=== PATIENT | male | born 1990 | race Caucasian/White ===

== ENCOUNTER 2021-03-31 12:00 | Outpatient (CLI) | payer OTHER, SELFPAY | END 2021-04-01 08:27 | disposition home or self-care (01) | LOC: SLEEP 04-09 14:33 | PROVIDERS: PCP Family Medicine; Visit Provider Family Medicine | DX: G47.10 Hypersomnia, unspecified (principal); G47.33 Obstructive sleep apnea (adult) (pediatric) | CPT/HCPCS: 95806 ==

== ENCOUNTER 2023-02-06 01:32 | Emergency (ER) | payer OTHER, SELFPAY ==
[2023-02-06 01:47] VITALS: BP 120/79; PULSE 96; RESP 18; TEMP 36.6; O2SAT 93; BMI 29.8
--- NOTE | 2023-02-06 02:00 | ED_ITS ---
HPI - Wound/Laceration General: Chief Complaint: Wound/Laceration Stated Complaint: LAC on Foot Time Seen by Provider: 02/06/23 01:51 Source: patient History of Present Illness: 32-year-old male who stepped on broken glass this morning walking around his [place]. He has lacerations to the plantar surface and medial side of his left foot. No other injury. Onset (ago): hour(s) (2) Extremity Location: Left: foot Place: home and outdoors Context: accidental Associated symptoms: Reports pain; Denies fever(s), foreign body sensation, inability to move, numbness or vomiting Treatments prior to arrival: other (Tried to glue) Review of Systems Const: Denies: fever(s) ENMT: Denies: throat pain Card: Denies: chest pain Resp: Denies: dyspnea GI: Denies: vomiting Physical Exam Const: COMMON NORMALS: no acute distress GENERAL APPEARANCE: not ill appearing HENMT: COMMON NORMALS: normocephalic, atraumatic and Normal external nose present HEAD & SCALP: normocephalic and atraumatic NOSE: Normal external nose present Eye: COMMON NORMALS: Equal, round and reactive pupils present and EOMs intact bilaterally PUPIL: Yes Equal, round and reactive pupils present Neck/C-Spine: GENERAL: Yes trachea midline Chest: CHEST: Yes Symmetrical chest wall rise Resp: COMMON NORMALS: normal respiratory effort and No use of accessory muscles Cardio: COMMON NORMALS: regular rate and regular rhythm RATE: regular rate RHYTHM: regular rhythm Extremity: NARRATIVE EXTREMITY EXAM: 2 tiny lacerations to the plantar surface of his left foot. 4 cm laceration to the medial left foot. Bleeding controlled. Sensation is intact distally. Capillary refill is normal. No foreign body on palpation or probing of the laceration. Neuro: GINO COMA SCALE: document GCS findings [place] coma scale eye opening: Spontaneous [place] coma scale verbal response: Orientated Gino coma scale motor response: Obey commands Gino coma scale total score: 15 Skin: NARRATIVE SKIN EXAM: See extremities Procedures Laceration Laceration 1: Site: lower extremity Side (If applicable): left Size (cm): 5 Description: flap Depth: involves muscle layer Local Anesthetic: lidocaine 1% and with epi Amount of anesthesia used (mL): 8 Pre-repair: wound explored, irrigated extensively and deep structures intact Skin layer closed with: nylon Size (cm): 3-0 Number of sutures: 11 Technique: simple, interrupted Subcutaneous layer closed with: vicryl Size: 4-0 Number of sutures: 2 Technique: running Laceration 2: Site: lower extremity Side (If applicable): left Size (cm): 1 Description: linear Depth: simple, single layer Pre-repair: wound explored, irrigated extensively and deep structures intact Skin layer closed with: other (dermabond) Course Vital Signs: Vital signs: Vital Signs Temperature 98 F 02/06/23 01:47 Pulse Rate 96 02/06/23 01:47 Respiratory Rate 18 02/06/23 01:47 Blood Pressure 120/79 02/06/23 01:47 Pulse Oximetry 93 02/06/23 01:47 Oxygen Delivery Me thod Room Air 02/06/23 01:47 MDM - Wound/Laceration Medical Decision Making Lacerations repaired without complication. We will place the patient on antibiotics, as this is a foot wound. Discharge Plan Discharge Patient Disposition: Home Clinical Impression: Laceration of left foot Qualifiers: Encounter type: initial encounter Qualified Code(s): S91.312A - Laceration without foreign body, left foot, initial encounter Condition: Stable Prescriptions: New cephalexin 500 mg capsule 500 mg PO Q6H Qty: 20 0RF hydrocodone-acetaminophen 5-325 mg tablet 1 tab PO Q8H PRN (Reason: pain) Qty: 7 0RF Discharge Orders: Discharge ED (Routine); Ordered 02/06/23 Ordered By: uLl Palmer Referrals: Tyrone Traore MD [Primary Care Provider] - 7-10 days Patient Instructions: Laceration (ED) Activity Restrictions/Additional Instructions: Sutures may be removed in 8 to 10 days. Keep dry for 24 hours, then may wash with soap and running water. Do not submerge in water. Antibiotics as directed. return for any problems. Coding Level of Care Code ED [employer] for [employer]ner
--- NOTE | 2023-02-06 02:20 | PC.NURSE ---
Foot soaked in warm saline, betadine solution.
[2023-02-06] MEDS: lidocaine-epi 1% 20 mL INJ 10 ML INJECTION (02:51)
[2023-02-06 03:32] VITALS: BP 119/65; PULSE 93; RESP 16; O2SAT 95
== END 2023-02-06 03:36 | disposition home or self-care (01) ==
PROVIDERS: Emergency Provider Emergency Medicine; PCP Family Medicine
DX: S91.312A Laceration without foreign body, left foot, initial encounter (principal); W25.XXXA Contact with sharp glass, initial encounter; Y92.095 Swimming-pool of other non-institutional residence as the place of occurrence of the external cause
CPT/HCPCS: 12001; 12042; 99283